=== PATIENT | female | born 1960 | race Caucasian/White ===

== ENCOUNTER 2017-07-09 03:19 | Emergency (ER) | payer OTHER ==
[~2017-07-09] VITALS: Ht 165.1 cm; Wt 75.0 kg
[2017-07-09 03:20] VITALS: BP 204/104; PULSE 92; RESP 16; TEMP 97.8; O2SAT 98
[2017-07-09] MEDS ORDERED: LINA145C PO (03:42)
[2017-07-09] MEDS ORDERED: SERT-129 PO (03:42)
[2017-07-09] MEDS ORDERED: NOVOLOGP2 SQ (03:42)
[2017-07-09] MEDS ORDERED: VENTAER INH (03:42)
[2017-07-09] MEDS ORDERED: CARV6.252 PO (03:42)
[2017-07-09] MEDS ORDERED: SIMV20TA PO (03:42)
[2017-07-09] MEDS ORDERED: DOXY100C PO (03:42)
[2017-07-09] MEDS ORDERED: GABA300C5 PO (03:42)
[2017-07-09] MEDS ORDERED: AMLO5CAP3 PO (03:42)
[2017-07-09] MEDS ORDERED: RANI150C PO (03:42)
[2017-07-09] MEDS ORDERED: LANS30CA PO (03:43)
[2017-07-09] MEDS ORDERED: RABE1TAB PO (03:43)
--- NOTE | 2017-07-09 04:11 | PD ---
HPI Chief Complaint: Respiratory Symptoms Time Seen by Provider: 03:42 Travel History International Travel<30 days: No Contact w/Intl Traveler<30days: No Traveled to known affect area: No History of Present Illness HPI The patient is a 57 year old female who presents to the [facility] emergency department with a history of cough, congestion, fever that began 6 weeks ago. The patient reports that an upper respiratory infection has been going around her house and passing from member to member. She reports that over the last week she has gotten much worse than she was previously. She reports that on July 04 she was seen at an urgent care center related to bilateral ear pain and a productive cough. She reports that she was diagnosed with bilateral otitis media and pneumonia. She was discharged home with a Ventolin inhaler and doxycycline. She reports that since starting the doxycycline she's had stomach upset, cramping, vomiting 2-3 times a day with taking the medicine and diarrhea 3 times per day. She reports that she continues to have ear pain. She reports that her cough is less violent and less productive than previously. She reports that she does continue to have some shortness of breath with exertion. The patient last had a fever on Monday with a Tmax of 102.6. She reports that she moved to the [facility] and April and has not established with a primary care physician yet. On review systems, she denies having any neck stiffness, urinary symptoms, or neurologic symptoms. The patient reports that she does have central chest pain with coughing. LMP: Status post hysterectomy PFSH Past Medical History Narrative Medical The patient's past medical history is significant for diabetes mellitus, history of stroke with residual left-sided weakness that she reports is mild, history of myocardial infarction, borderline hyperlipidemia, hypertension, chronic back pain with degenerative disc disease of the lumbar spine. Cerebrovascular Accident: Yes (stroke 2002) Diabetes: Yes Patient Takes Glucophage: No Hypertension: Yes Immunizations Current: Yes Myocardial Infarction: Yes ([place] 2001) Tetanus Vaccination: < 5 Years Influenza Vaccination: Yes Past Surgical History Narrative Surgical The patient's past surgical history is significant for a hysterectomy, 3 prior lumbar surgeries including a fusion. Social History Alcohol Use: No Tobacco Use: No Substance Use: No Allergies-Medications (Allergen,Severity, Reaction): Coded Allergies: codeine (Verified Allergy, Severe, Dizziness, 07/09/17) penicillin V (Verified Allergy, Severe, Rash, 07/09/17) Reported Meds & Prescriptions Reported Meds & Active Scripts Active Azithromycin 250 Mg Tab 250 Mg PO DAILY 4 Days Benzonatate 200 Mg Cap 200 Mg PO TID PRN 5 Days Reported Lansoprazole 30 Mg Capdr 30 Mg PO DAILY Rabeprazole (Rabeprazole Sodium) 20 Mg Tab 20 Mg PO DAILY Novolog Inj (Insulin Aspart) 1,000 Unit/10 Ml Vial 0 SQ DIRECTED Sliding Scale as directed. Sertraline (Sertraline HCl) 100 Mg Tab 100 Mg PO DAILY Amlodipine-Benazepril 5-20 Mg Cap 1 Cap PO DAILY Ranitidine (Ranitidine HCl) 150 Mg Cap 150 Mg PO DAILY Carvedilol 6.25 Mg Tab 6.25 Mg PO BID Simvastatin 20 Mg Tab 20 Mg PO DAILY Gabapentin 300 Mg Cap 300 Mg PO HS Linzess (Linaclotide) 145 Mcg Cap 145 Mcg PO DAILY Doxycycline Hyclate 100 Mg Cap 100 Mg PO BID Ventolin Hfa 18 GM Inh (Albuterol Sulfate) 90 Mcg/Act Aer 2 Puff INH Q4H PRN Narrative Medication She is on a low-dose aspirin daily. Review of Systems Except as stated in HPI: all other systems reviewed are Neg General / Constitutional: Positive: Fever, Chills Eyes: No: Visual changes HENT: Positive: Sore Throat, Rhinorrhea, Congestion, Earache, No: Headaches, Neck Stiffness, Neck Pain Cardiovascular: Positive: Chest Pain or Discomfort (with coughing), Dyspnea on exertion Respiratory: Positive: Cough, Shortness of Breath, Wheezing Gastrointestinal: Positive: Nausea, Vomiting, Diarrhea, Abdominal Pain ( cramping), Changes in Bowel Habits, No: Hematemesis, Hematochezia, Indigestion, Loss of Appetite Genitourinary: No: Dysuria Musculoskeletal: No: Pain Skin: No Rash Neurologic: No: Weakness, Focal Abnormalities, Change in Mentation, Slurred Speech, Sensory Disturbance Psychiatric: No: Depression Endocrine: No: Polydipsia Hematologic/Lymphatic: No: Easy Bruising Physical Exam Narrative General: The patient is a well-developed well-nourished female in no acute distress. Head and Neck exam: Head is normocephalic atraumatic. Eyes: EOMI, pupils are equal round and reactive to light. Nose: Midline septum with pink mucous membranes Mouth: Dentition unremarkable. Moist mucus membranes. Posterior oropharynx is not erythematous. No tonsillar hypertrophy. Uvula midline. Airway patent. Ears: The patient's tympanic membranes bilaterally are erythematous and bulging with yellow fluid present posterior to them with blunted cones of light. Neck: No palpable lymphadenopathy. No nuchal rigidity. No thyromegaly. Negative Brudzinski, negative Kernig sign. Cardiovascular: Regular rate and rhythm without murmurs, gallops, or rubs. No pulse deficit to the extremities on simultaneous auscultation and palpation of her radial artery. Lungs: Clear to auscultation bilaterally. No wheezes, rhonchi, or rales. The patient has a frequent dry cough on examination. Abdomen: Soft, without tenderness to palpation in all 4 quadrants of the abdomen. No guarding, rebound, or rigidity. Normal bowel sounds are audible. No tenderness on palpation of McBurney's point. Negative Ramirez sign. Extremities: No clubbing, cyanosis, or edema. 2+ pulses in all 4 extremities. No calf tenderness on palpation. Back: No costovertebral angle tenderness to palpation. Neurologic Exam: Grossly nonfocal. Skin Exam: No rash noted. Intact skin that is warm and dry. Data Data Last Documented VS Vital Signs Date Time Temp Pulse Resp B/P (MAP) Pulse Ox O2 Delivery O2 Flow Rate FiO2 07/09/17 05:39 77 18 160/83 (108) 94 Room Air 07/09/17 03:20 97.8 Orders Orders Electrocardiogram (07/09/17 03:59) Complete Blood Count With Diff (07/09/17 03:59) Comprehensive Metabolic Panel (07/09/17 03:59) Creatine Kinase (Cpk) (07/09/17 03:59) Ckmb (Isoenzyme) Profile (07/09/17 03:59) Troponin I (07/09/17 03:59) Prothrombin Time / Inr (Pt) (07/09/17 03:59) Act Partial Throm Time (Ptt) (07/09/17 03:59) Blood Culture (07/09/17 03:59) Lipase (07/09/17 03:59) Urinalysis - C+S If Indicated (07/09/17 03:59) Magnesium (Mg) (07/09/17 03:59) Chest, Single Ap (07/09/17 03:59) Iv Access Insert/Monitor (07/09/17 03:59) Ecg Monitoring (07/09/17 03:59) Oximetry (07/09/17 03:59) Lactic Acid Sepsis Protocol (07/09/17 03:59) Azithromycin Inj (Zithromax Inj) (07/09/17 05:00) Sodium Chlor 0.9% 1000 Ml Inj (Ns 1000 M (07/09/17 05:00) Ondansetron Inj (Zofran Inj) (07/09/17 05:00) Potassium Chloride (Kcl) (07/09/17 06:15) Ed Discharge Order (07/09/17 06:04) Labs Laboratory Tests Test 07/09/17 04:08 07/09/17 04:10 White Blood Count 7.3 TH/MM3 Red Blood Count 3.97 MIL/MM3 Hemoglobin 11.5 GM/DL Hematocrit 33.8 % Mean Corpuscular Volume 85.2 FL Mean Corpuscular Hemoglobin 28.9 PG Mean Corpuscular Hemoglobin Concent 34.0 % Red Cell Distribution Width 13.6 % Platelet Count 281 TH/MM3 Mean Platelet Volume 8.7 FL Neutrophils (%) (Auto) 57.9 % Lymphocytes (%) (Auto) 30.8 % Monocytes (%) (Auto) 8.2 % Eosinophils (%) (Auto) 2.5 % Basophils (%) (Auto) 0.6 % Neutrophils # (Auto) 4.2 TH/MM3 Lymphocytes # (Auto) 2.2 TH/MM3 Monocytes # (Auto) 0.6 TH/MM3 Eosinophils # (Auto) 0.2 TH/MM3 Basophils # (Auto) 0.0 TH/MM3 CBC Comment AUTO DIFF Differential Total Cells Counted 100 Neutrophils % (Manual) 58 % Band Neutrophils % 6 % Lymphocytes % 27 % Monocytes % 5 % Eosinophils % 1 % Neutrophils # (Manual) 4.9 TH/MM3 Metamyelocytes 1 % Myelocytes 2 % Differential Comment FINAL DIFF MANUAL Atypical Lymphocytes % Platelet Estimate NORMAL Platelet Morphology Comment NORMAL Ovalocytes 1+ Prothrombin Time 10.7 SEC Prothromb Time International Ratio 1.1 RATIO Activated Partial Thromboplast Time 24.9 SEC Blood Urea Nitrogen 11 MG/DL Creatinine 0.66 MG/DL Random Glucose 94 MG/DL Total Protein 7.7 GM/DL Albumin 3.1 GM/DL Calcium Level 8.9 MG/DL Magnesium Level 1.6 MG/DL Alkaline Phosphatase 78 U/L Aspartate Amino Transf (AST/SGOT) 20 U/L Alanine Aminotransferase (ALT/SGPT) 25 U/L Total Bilirubin 0.3 MG/DL Sodium Level 141 MEQ/L Potassium Level 3.1 MEQ/L Chloride Level 102 MEQ/L Carbon Dioxide Level 31.4 MEQ/L Anion Gap 8 MEQ/L Estimat Glomerular Filtration Rate 92 ML/MIN Lactic Acid Level 0.9 mmol/L Total Creatine Kinase 80 U/L Troponin I LESS THAN 0.02 NG/ML Lipase 179 U/L Urine Color LIGHT-YELLOW Urine Turbidity CLEAR Urine pH 7.0 Urine Specific [place] 1.005 Urine Protein NEG mg/dL Urine Glucose (UA) NEG mg/dL Urine Ketones NEG mg/dL Urine Occult Blood NEG Urine Nitrite NEG Urine Bilirubin NEG Urine Urobilinogen LESS THAN 2.0 MG/DL Urine Leukocyte Esterase NEG Urine WBC LESS THAN 1 /hpf Urine Squamous Epithelial Cells <1 /hpf Urine Bacteria RARE /hpf Microscopic Urinalysis Comment CULT NOT INDICATED MDM Medical Decision Making Medical Screen Exam Complete: Yes Emergency Medical Condition: Yes Medical Record Reviewed: Yes Interpretation(s) Last Impressions Chest X-Ray 07/09/17 0359 Signed Impressions: Service Date/Time: Sunday, July 09, 2017 04:06 - CONCLUSION: Mild left base atelectasis. No other acute cardiopulmonary disease demonstrated. Sumeet Larsen MD Differential Diagnosis Pneumonia, versus acute coronary syndrome, versus pneumothorax, versus congestive heart failure, versus reactive airway Narrative Course During the course of the patients emergency department visit, the patients history, examination, and differential diagnosis were reviewed with the patient. The patient was placed on a kids club attendant with oximetry and frequent blood pressure monitoring. The patient had IV access obtained and blood work sent for analysis. The patient had an ECG done on arrival that shows a sinus rhythm heart rate of 82, QRS duration is 93 ms, QTC 397 ms without any acute ST segment elevation. T waves are inverted in lead 3, V1. The patient was initially provided normal saline a 1 L IV fluid bolus, Zofran 4 mg IV, azithromycin 500 mg IV. The patients laboratory studies were reviewed and remarkable for a white count of 7.3, hemoglobin 11.5, platelets 281 with 8.2 monocytes. CMP is remarkable for potassium of 3.1 which was supplemented orally, lipase 179, cardiac enzymes within normal limits. PT 10.7, PTT 24.9. Urinalysis is within normal limits. Radiology studies were reviewed and remarkable for a chest x-ray that shows mild left base atelectasis, no other acute cardiopulmonary disease. Given the patient's symptoms the area of ventral this area of infiltrate is concerning for small pneumonia. The patient will be discharged home on Zithromax. The patient will complete a 5 day course. The patient is given a prescription for benzonatate for cough. The patient is resting comfortably and feels better, is alert and in no distress. The patients results and examination findings were discussed with the patient. The repeat examination is unremarkable and benign. The history, exam, diagnostic testing, and current condition do not suggest any significant pathology to warrant further testing, continued ED treatment, admission, or surgical evaluation at this point. The vital signs have been stable. The patient does not have uncontrollable pain, intractable vomiting, or other significant symptoms. The patient's condition is stable and appropriate for discharge. The patient will pursue further outpatient evaluation with a primary care physician or other designated or consulting physician as indicated in the discharge instructions. The patient expressed understanding and was agreeable with this plan. Diagnosis Primary Impression: Pneumonia Qualified Codes: J18.1 - Lobar pneumonia, unspecified organism Additional Impression: Bilateral otitis media Qualified Codes: H66.003 - Acute suppurative otitis media without spontaneous rupture of ear drum, bilateral Referrals: [facility] 2 days Primary Care Physician 2 days Patient Instructions: Community Acquired Pneumonia (ED), Ear Infection (ED), General Instructions Med/Other Pt SpecificInfo: Prescription(s) given Scripts Benzonatate (Benzonatate) 200 Mg Cap 200 MG PO TID Y for COUGH for 5 Days, CAP 0 Refills Prov: Shasta Larsen MD 07/09/17 Azithromycin (Azithromycin) 250 Mg Tab 250 MG PO DAILY for Infection for 4 Days, #4 TAB 0 Refills Prov: Shasta Larsen MD 07/09/17 Disposition: 01 DISCHARGE HOME Condition: Stable Shasta Larsen MD Jul 09, 2017 04:11
--- NOTE | 2017-07-09 04:22 | RADRPT ---
EXAM DATE/TIME: 07/09/2017 04:06 [place] COMPARISON: No previous studies available for comparison. INDICATIONS : Cough x 6 weeks MEDICAL HISTORY : None. SURGICAL HISTORY : None. ENCOUNTER: Initial ACUITY: 2 months PAIN SCORE: 7/10 LOCATION: Bilateral chest FINDINGS: Mild left base atelectasis noted. Right lung clear. No pleural effusion or pneumothorax. Normal heart size. CONCLUSION: Mild left base atelectasis. No other acute cardiopulmonary disease demonstrated. Sumeet Larsen MD on July 09, 2017 at 4:20 Board Certified Radiologist. This report was verified electronically.
[2017-07-09] MEDS ORDERED: SODIUM CHLOR 0.9% 1000 ML INJ 1,000 ML IV ONE (05:00)
[2017-07-09] MEDS ORDERED: ONDANSETRON HCL 4 MG/2 ML VIAL IV ONE (05:00)
[2017-07-09] MEDS ORDERED: AZITHROMYCIN INJ 500 MG in SODIUM CHLOR 0.9% 250 ML INJ 250 ML IV ONE (05:00)
[2017-07-09 05:18] LABS: BACTERIA, URINE RARE /hpf; BILIRUBIN, URINE NEG (NEG); BLOOD, URINE NEG (NEG); GLUCOSE,URINE NEG (NEG); KETONE, URINE NEG (NEG); NITRITE,URINE NEG (NEG); SQUAMOUS EPITHELIAL CELL URINE <1 /hpf (0-5); URINE COLOR LIGHT-YELLOW (YELLW/STRAW); URINE LEUKOCYTE ESTERASE NEG (NEG)
[2017-07-09 05:20] LABS: AUTOMATED NEUTROPHIL # 4.2 TH/MM3 (1.8-7.7); BASOPHIL % 0.6 % (0.0-2.0); EOSINOPHIL # 0.2 TH/MM3 (0-0.4); EOSINOPHIL % 2.5 % (0.0-4.0); HEMATOCRIT 33.8 % (35.0-46.0); HEMOGLOBIN 11.5 GM/DL (11.6-15.3); LYMPH % 30.8 % (9.0-44.0); LYMPHOCYTE # 2.2 TH/MM3 (1.0-4.8); MEAN CELL VOLUME 85.2 FL (80.0-100.0); MEAN CORPUSCULAR HEMOGLOBIN 28.9 PG (27.0-34.0); MEAN PLATELET VOLUME 8.7 FL (7.0-11.0); MONO % 8.2 % (0.0-8.0); MONOCYTE # 0.6 TH/MM3 (0-0.9); NEUT % 57.9 % (16.0-70.0); PLATELET COUNT 281 TH/MM3 (150-450); RED BLOOD COUNT 3.97 MIL/MM3 (4.00-5.30); RED CELL DISTRIBUTION WIDTH 13.6 % (11.6-17.2); WHITE BLOOD COUNT 7.3 TH/MM3 (4.0-11.0)
[2017-07-09 05:27] LABS: INTERNATIONAL NORMALIZED RATIO 1.1 RATIO; PROTHROMBIN TIME - PATIENT 10.7 SEC (9.8-11.6)
[2017-07-09 05:35] LABS: ALBUMIN 3.1 GM/DL (3.4-5.0); AST (GOT) 20 U/L (15-37); BICARBONATE 31.4 MEQ/L (21.0-32.0); BLOOD UREA NITROGEN 11 MG/DL (7-18); CALCIUM 8.9 MG/DL (8.5-10.1); CHLORIDE 102 MEQ/L (98-107); CREATININE 0.66 MG/DL (0.50-1.00); GLOMERULAR FILTRATION RATE 92 ML/MIN (>89); GLUCOSE,RANDOM 94 MG/DL (74-106); LIPASE 179 U/L (73-393); MAGNESIUM 1.6 MG/DL (1.5-2.5); SODIUM (NA) 141 MEQ/L (136-145)
[2017-07-09 05:36] LABS: ALT (GPT) 25 U/L (10-53)
[2017-07-09 05:39] VITALS: BP 160/83; PULSE 77; RESP 18; O2SAT 94
[2017-07-09 05:40] LABS: ALKALINE PHOSPHATASE 78 U/L (45-117); TOTAL BILIRUBIN ADULT 0.3 MG/DL (0.2-1.0); TOTAL PROTEIN 7.7 GM/DL (6.4-8.2); TROPONIN I LESS THAN 0.02 NG/ML (0.02-0.05)
[2017-07-09] MEDS ORDERED: BENZ1CAP51 PO (06:03)
[2017-07-09] MEDS ORDERED: AZIT250T3 PO (06:03)
[2017-07-09] MEDS ORDERED: POTASSIUM CHLORIDE 20 MEQ CONTROLLED RELEASE TAB PO ONE (06:15)
[2017-07-09 06:21] LABS: BANDS 6 % (0-6); LYMPHOCYTES 27 % (9-44); METAMYELOCYTES 1 % (0-1); MONOCYTES 5 % (0-8); MYELOCYTES 2 % (0-0); NEUTROPHIL # MANUAL DIFF 4.9 TH/MM3 (1.8-7.7); POLYS (SEG NEUTROPHILS) 58 % (16-70)
[2017-07-09 06:22] LABS: OVALOCYTES 1+ (NORMAL)
--- NOTE | 2017-07-09 12:48 | EKG ---
Date Performed: 07/09/2017 Time Performed: 04:09:46 PTAGE: 57 years EKG: Sinus rhythm NORMAL ECG NO PREVIOUS TRACING DOCTOR: Balaji Rose Interpretating Date/Time 07/09/2017 12:47:17
== END 2017-07-09 06:48 | disposition home or self-care (01) ==
LOC: NEPE 03:19
DX: J18.1 Lobar pneumonia, unspecified organism (principal); H66.009 Acute suppurative otitis media without spontaneous rupture of ear drum, unspecified ear; E11.9 Type 2 diabetes mellitus without complications; E78.5 Hyperlipidemia, unspecified; I10 Essential (primary) hypertension; I25.2 Old myocardial infarction; M54.9 Dorsalgia, unspecified; Z86.73 Personal history of transient ischemic attack (TIA), and cerebral infarction without residual deficits; Z88.0 Allergy status to penicillin
CPT/HCPCS: 71010; 80053; 81001; 82550; 83605; 83690; 83735; 84484; 85007; 85027; 85610; 85730; 87040; 93005; 96365; 96375; 99284; J0456; J2405; J7030; J7050